=== PATIENT | male | born 1965 | race Caucasian/White ===

== ENCOUNTER → 2021-03-02 | Outpatient (CLI) | payer MEDICARE | LOC: EMI 10:57 | DX: M50.30 Other cervical disc degeneration, unspecified cervical region (principal); M25.78 Osteophyte, vertebrae | CPT/HCPCS: 72156; A9577 ==

== ENCOUNTER → 2021-05-20 | Outpatient (CLI) | payer MEDICARE | LOC: KOH-I 09:30 | DX: M50.30 Other cervical disc degeneration, unspecified cervical region (principal) | CPT/HCPCS: 72125 ==

== ENCOUNTER 2022-03-17 20:44 | Emergency (ER) | payer MEDICARE | END 2022-03-17 23:43 | disposition home or self-care (01) | LOC: ER1 20:44 | DX: H61.22 Impacted cerumen, left ear (principal); M54.2 Cervicalgia; M54.50 Low back pain, unspecified; M54.6 Pain in thoracic spine; I10 Essential (primary) hypertension; F17.200 Nicotine dependence, unspecified, uncomplicated | CPT/HCPCS: 70450; 72125; 99284 ==

== ENCOUNTER → 2022-03-21 | Outpatient (CLI) | payer MEDICARE | LOC: MRI 09:49 | DX: G95.9 Disease of spinal cord, unspecified (principal); M47.812 Spondylosis without myelopathy or radiculopathy, cervical region; M48.02 Spinal stenosis, cervical region | CPT/HCPCS: 72156; A9577 ==